=== PATIENT | male | born 1975 | race African-American/Black ===

== ENCOUNTER 2023-01-05 14:05 | Emergency (ER) | payer OTHER ==
[2023-01-05 14:54] LABS: Bilirubin Neg (Negative); Blood, Urine Negative (Negative); Clarity Slightly Cloudy (Clear); Glucose, Urine (Dipstick) Normal (Negative); Ketone, Urine Negative (Negative); Leukocyte Negative (Negative); Nitrite Negative (Negative); Protein, Urine (Dipstick) Negative (Neg-Trace); Urobilinogen Normal mg/dL (Less than 2)
== END 2023-01-05 16:12 | disposition home or self-care (01) ==
LOC: CSHERS 14:05
DX: N50.811 Right testicular pain (principal); N50.812 Left testicular pain; K21.9 Gastro-esophageal reflux disease without esophagitis; E78.5 Hyperlipidemia, unspecified; I10 Essential (primary) hypertension; Z87.891 Personal history of nicotine dependence
CPT/HCPCS: 76870; 81003; 93976